=== PATIENT | male | born 1945 | race Caucasian/White ===

== ENCOUNTER 2019-04-13 11:44 | Inpatient (IN) | payer MEDICARE, MEDICAID, OTHER ==
[~2019-04-13] VITALS: Ht 182.9 cm; Wt 70.8 kg
--- NOTE | 2019-04-13 11:54 | NUR ---
PT LD FROM [facility] FOR S/I, PLANS TO TAKE SLEEPING PILLS; PT AAOX2-3, PT TO BED 15, PT ON MONITOR, VSS, SUICIDE PRECAUTION INITIATED. PENDING MD RITCHIE
[2019-04-13 12:24] LABS: BASOPHILS % (AUTO) 0.7 % (0.0-2.0); EOSINOPHILS % (AUTO) 2.6 % (0.0-6.0); HEMATOCRIT 37 % (39-51); HEMOGLOBIN 13.1 g/dL (13.5-17.5); LYMPHOCYTES % (AUTO) 31.5 % (20.0-44.0); MEAN CORPUSCULAR HGB CONC 35 g/dl (31.0-36.0); MEAN CORPUSCULAR VOLUME 94 fL (80-96); MONOCYTES # (AUTO) 0.4 /CMM (0.1-1.30); MONOCYTES % (AUTO) 6.8 % (2.0-12.0); NEUTROPHILS # (AUTO) 3.8 /CMM (1.8-8.9); NEUTROPHILS % (AUTO) 58.4 % (43.0-81.0); PLATELET COUNT (AUTO) 181 /CMM (150-450); RED BLOOD CELL COUNT(AUTO) 3.97 MIL/uL (4.5-6.0); WHITE BLOOD COUNT (AUTO) 6.5 K/uL (4.3-11.0)
[2019-04-13 12:29] LABS: CALCIUM, SERUM 8.6 mg/dL (8.5-10.1); CARBON DIOXIDE 26 mmol/L (21-32); CHLORIDE 105 mmol/L (98-107); CREATININE 0.8 mg/dL (0.6-1.3); GLUCOSE 94 mg/dL (74-106); SODIUM SERUM 139 mmol/L (136-145); UREA NITROGEN, BLOOD 22 mg/dL (7-18)
[2019-04-13 12:41] LABS: APPEARANCE,URINE Clear (CLEAR); BILIRUBIN,URINE Negative (NEGATIVE); BLOOD, URINE Negative Ery/uL (NEGATIVE); COLOR,URINE Yellow (YELLOW); KETONES,URINE Negative (NEGATIVE); LEUKOCYTE ESTERASE ,URINE Negative (NEGATIVE); NITRITE, URINE Negative (NEGATIVE); PH,URINE 6.5 (5.0-8.0); PROTEIN,URINE Negative (NEGATIVE); UGLUCOSE Negative (NEGATIVE)
[2019-04-13 12:42] LABS: ALANINE AMINOTRANSFERASE 19 U/L (12-78); ALBUMIN 3.5 g/dL (3.4-5.0); ALCOHOL, BLOOD < 3 mg/dL (0-0); ALKALINE PHOSPHATASE 55 U/L (46-116); ASPARTATE AMINOTRANSFERASE 14 U/L (15-37); BILIRUBIN,DIRECT 0.1 mg/dL (0.0-0.2); BILIRUBIN,TOTAL 0.9 mg/dL (0.2-1.0); TOTAL PROTEIN, SERUM 6.7 g/dL (6.4-8.2)
[2019-04-13 12:43] LABS: ACETAMINOPHEN 0 ug/ml (10-30); SALICYLATE < 0.3 mg/dL (2.8-20.0)
[2019-04-13] MEDS ORDERED: CARV3.122 PO (12:43)
[2019-04-13] MEDS ORDERED: PANT40TA4 PO (12:43)
[2019-04-13] MEDS ORDERED: METF-440 PO (12:43)
[2019-04-13] MEDS ORDERED: DONE10TA44 PO (12:43)
[2019-04-13] MEDS ORDERED: TEMA30CA PO (12:43)
[2019-04-13] MEDS ORDERED: BENA10TA11 PO (12:43)
[2019-04-13] MEDS ORDERED: RISP0.253 PO (12:44)
[2019-04-13 12:45] LABS: BACTERIA,URINE None seen /HPF (None Seen); RBC,URINE NONE SEEN /HPF (0-2); SQUAMOUS EPITHELIAL CELL,UR Few /HPF (None Seen); WBC,URINE NONE SEEN /HPF (0-3)
--- NOTE | 2019-04-13 12:46 | NUR ---
URINE COLLECTED AND SENT TO LAB
--- NOTE | 2019-04-13 14:28 | NUR ---
CALLED NURSING SUP REQUESTED GPS BED FOR THIS PATIENT
--- NOTE | 2019-04-13 14:57 | NUR ---
REPORT GIVEN TO DEMETRIUS PHAN FOR CORY; [facility]
[2019-04-13] MEDS ORDERED: MAGNESIUM HYDROXIDE 30 ML UDC PO PRN (15:00)
[2019-04-13] MEDS ORDERED: LORAZEPAM 0.5 MG TABLET PO PRN (15:00)
[2019-04-13] MEDS ORDERED: ACETAMINOPHEN 325 MG TABLET PO PRN (15:00)
[2019-04-13] MEDS ORDERED: MAG HYDROX/AL HYDROX/SIMETH 30 ML UDC PO PRN (15:00)
--- NOTE | 2019-04-13 15:05 | NUR ---
Group note: Pt was encouraged to join group therapy session on 04/13/19 at 2:00pm. Pt. unable to attend group.
[2019-04-13 15:34] VITALS: BP 150/64
--- NOTE | 2019-04-13 15:51 | NUR ---
ADMITTED A 74 YEARS OLD MALE FOR 5150 FOR DTS. PER. HOLD PT. OVERDOSED ON 6 SLEEPING PILLS A SUICIDAL ATTEMPT. PT. DOES NOT WANT TO LIVE, FEELS LIFE IS NOT WORTH, FEELS HOPELESS. PT. ARRIVED IN THE UNIT VIA A WHEELCHAIR AND WHEELED BY ER STAFF. PT. IS UNDER THE SERVICE OF DR. HDZ AND RENETTA RENO (SENIOR BUSINESS MANAGER). UPON FACE TO FACE ASSESSMENT, PT. DENIED BEING SUICIDAL AND HOMICIDAL. HE STATED HE IS STILL DEPRESSED AND FEELING HOPELESS. V/S TAKEN, CONTRABAND TAKEN AND SKIN ASSESSMENT RENDERED. CALLED SONIA HAMMOND AT [phone] AND LEFT A MESSAGE. PT. WAS ORIENTED IN THE UNIT AND PTS. RIGHT HANDBOOK PROVIDED, WILL CONTINUE TO MONITOR FOR SAFETY.
--- NOTE | 2019-04-13 15:55 | NUR ---
RN-CO:DR Ayoub gave admitting orders. Patient's rights booklet was given to the patient and encouraged him to ask questions.
[2019-04-13 16:00] VITALS: BP 150/64
--- NOTE | 2019-04-13 16:13 | NUR ---
RENETTA RENO IN THE UNIT AND MADE AWARE OF THE ADMISSION AND TOLD TO RECONCILE MEDS.
[2019-04-13 16:50] VITALS: BP 120/65
[2019-04-13] MEDS: CARVEDILOL 3.125 MG TABLET PO SCH (16:51)
[2019-04-13] MEDS: METFORMIN 500 MG TABLET PO SCH (16:51)
[2019-04-13] MEDS ORDERED: TEMAZEPAM 15 MG CAPSULE PO PRN (17:00)
--- NOTE | 2019-04-13 18:44 | NUR ---
RN-CO: ABLE TO NOTIFIED SONIA HAMMOND.
[2019-04-13] MEDS: SERTRALINE HCL 25 MG TABLET PO SCH (19:48)
--- NOTE | 2019-04-13 19:51 | NUR ---
RN NOTES: KEPT ON CLOSE WATCH DUE MEDICATION VERIFIED AND GIVEN.
[2019-04-13 20:00] VITALS: BP 109/51
[2019-04-13 20:04] VITALS: BP 109/43
[2019-04-13] MEDS ORDERED: risperiDONE 1 MG TABLET PO SCH ×2 (22:00)
[2019-04-13] MEDS: DONEPEZIL 5 MG TABLET PO SCH (22:19)
[2019-04-14 07:21] LABS: CHOLESTEROL 246 mg/dL (<200); HDL CHOLESTEROL 33 mg/dL (40-60); LDL 168 mg/dL (0-99); TRIGLYCERIDES 207 mg/dL (30-150)
[2019-04-14 07:25] LABS: ALANINE AMINOTRANSFERASE 23 U/L (12-78); ALBUMIN 3.5 g/dL (3.4-5.0); ALKALINE PHOSPHATASE 52 U/L (46-116); ASPARTATE AMINOTRANSFERASE 13 U/L (15-37); CALCIUM, SERUM 8.9 mg/dL (8.5-10.1); CARBON DIOXIDE 27 mmol/L (21-32); CHLORIDE 104 mmol/L (98-107); CREATININE 0.8 mg/dL (0.6-1.3); GLUCOSE 81 mg/dL (74-106); POTASSIUM 3.7 mmol/L (3.5-5.1); SODIUM SERUM 139 mmol/L (136-145); TOTAL PROTEIN, SERUM 6.7 g/dL (6.4-8.2); UREA NITROGEN, BLOOD 21 mg/dL (7-18)
[2019-04-14 08:00] VITALS: BP 113/64
[2019-04-14] MEDS: BENAZEPRIL HCL 10 MG TABLET PO SCH (09:40)
[2019-04-14] MEDS: PANTOPRAZOLE 40 MG TABLET.DR PO SCH (09:40)
[2019-04-14] MEDS: CARVEDILOL 3.125 MG TABLET PO SCH ×2 (09:41→17:48)
[2019-04-14] MEDS: METFORMIN 500 MG TABLET PO SCH ×2 (09:41→17:48)
[2019-04-14 16:00] VITALS: BP 107/57
[2019-04-14] MEDS: SERTRALINE HCL 25 MG TABLET PO SCH (17:48)
[2019-04-14 19:39] VITALS: BP 124/64
[2019-04-14] MEDS: DONEPEZIL 5 MG TABLET PO SCH (21:32)
[2019-04-14] MEDS: risperiDONE 1 MG TABLET PO SCH (21:33)
[2019-04-15 08:00] VITALS: BP 108/50
[2019-04-15] MEDS: CARVEDILOL 3.125 MG TABLET PO SCH ×2 (09:35→17:29)
[2019-04-15] MEDS: METFORMIN 500 MG TABLET PO SCH ×2 (09:35→17:28)
[2019-04-15] MEDS: PANTOPRAZOLE 40 MG TABLET.DR PO SCH (09:36)
[2019-04-15] MEDS: BENAZEPRIL HCL 10 MG TABLET PO SCH (09:36)
[2019-04-15 16:00] VITALS: BP 140/77
--- NOTE | 2019-04-15 19:08 | NUR ---
Patient endorsed to EMILIE Morley.
[2019-04-15] MEDS: risperiDONE 1 MG TABLET PO SCH (20:58)
[2019-04-15] MEDS: DONEPEZIL 5 MG TABLET PO SCH (20:58)
[2019-04-15 21:07] VITALS: BP 103/58
[2019-04-16 08:00] VITALS: BP 100/56
[2019-04-16] MEDS: BENAZEPRIL HCL 10 MG TABLET PO SCH (09:00)
[2019-04-16] MEDS: CARVEDILOL 3.125 MG TABLET PO SCH ×2 (09:00→16:21)
[2019-04-16] MEDS: METFORMIN 500 MG TABLET PO SCH ×2 (09:13→16:20)
[2019-04-16] MEDS: PANTOPRAZOLE 40 MG TABLET.DR PO SCH (09:13)
--- NOTE | 2019-04-16 09:52 | NUR ---
ANA contacted Michelle [phone] who stated she is not pts and is not able to assist with information. Michelle stated that she is pts friend but has not relationship with him and does not want to be informed of anything pertaining to pt.
--- NOTE | 2019-04-16 10:37 | NUR ---
SW contacted therapist Vero Tavares [phone] [facility] [address] [facility] [address], [place] [address] who stated pt is no longer a client in their clinic.
--- NOTE | 2019-04-16 11:28 | NUR ---
INITIAL DISCHARGE NOTE: Patient came from [facility] [address] [facility] [address]. There is no phone number to contact and SW has been unable to locate facility information online. SW will explore SNF placement. ANA will help form a safe and proper discharge in collaboration with .
[2019-04-16 16:00] VITALS: BP 113/62
--- NOTE | 2019-04-16 16:11 | NUR ---
GROUP NOTE: SW prompted pt to participate in group therapy on 04/17/19 at 2:00pm but pt refused to attend stating, "get out and let me sleep."
[2019-04-16] MEDS ORDERED: SERTRALINE HCL 25 MG TABLET PO SCH (17:00)
[2019-04-16 20:24] VITALS: BP 107/51
[2019-04-16] MEDS: DONEPEZIL 5 MG TABLET PO SCH (21:09)
[2019-04-16] MEDS: risperiDONE 1 MG TABLET PO SCH (21:10)
[2019-04-16] MEDS: TEMAZEPAM 7.5 MG CAPSULE PO PRN (21:12)
--- NOTE | 2019-04-16 22:37 | NUR ---
SLEEPING Patient in bed, sleeping arouses easily. Compliant with medication, safety checks continues.
--- NOTE | 2019-04-17 06:12 | NUR ---
END OF SHIFT NOTES Patient slept well with PRN Restoril, approximately 9 hours of sleep. Maintained safety.
[2019-04-17 08:00] VITALS: BP 105/52
[2019-04-17] MEDS: PANTOPRAZOLE 40 MG TABLET.DR PO SCH (08:55)
[2019-04-17] MEDS: METFORMIN 500 MG TABLET PO SCH ×2 (08:55→16:35)
[2019-04-17] MEDS: CARVEDILOL 3.125 MG TABLET PO SCH ×2 (08:56→16:35)
[2019-04-17] MEDS: BENAZEPRIL HCL 10 MG TABLET PO SCH (08:58)
--- NOTE | 2019-04-17 12:06 | NUR ---
SW attempted to provide substance abuse intervention to pt but pt was agitated and asked SW to leave. Pt refused to cooperate with intervention.
--- NOTE | 2019-04-17 15:08 | NUR ---
Group Note: Pt was encouraged to attend group therapy on 04/17/19 at 2pm discussing the topic of their goals in areas of both their hospitalization and their personal life. Pt stated that he did not want to attend the group and would rather stay in his room. Pt is isolating and presented as irritable.
[2019-04-17 16:00] VITALS: BP 102/79
[2019-04-17] MEDS: SERTRALINE HCL 25 MG TABLET PO SCH (16:35)
[2019-04-17 20:26] VITALS: BP 110/55
[2019-04-17] MEDS: risperiDONE 1 MG TABLET PO SCH (21:16)
[2019-04-17] MEDS: DONEPEZIL 5 MG TABLET PO SCH (21:16)
[2019-04-17 22:30] VITALS: BP 109/65
[2019-04-18 08:00] VITALS: BP 103/57
[2019-04-18] MEDS: PANTOPRAZOLE 40 MG TABLET.DR PO SCH (08:03)
[2019-04-18] MEDS: METFORMIN 500 MG TABLET PO SCH ×2 (08:11→16:33)
[2019-04-18] MEDS: CARVEDILOL 3.125 MG TABLET PO SCH (08:12)
[2019-04-18] MEDS: BENAZEPRIL HCL 10 MG TABLET PO SCH (08:13)
--- NOTE | 2019-04-18 09:11 | NUR ---
ANA faxed SNF referral to Faby, clinical pharmacy coordinator at [facility] Address: [address] [facility], [place] [address] for review.
--- NOTE | 2019-04-18 13:46 | NUR ---
ANA received a call from pts therapist Zena [phone] at [facility] [address] [address] stating that there was a miscommunication and that pt is currently receiving services at their clinic. Zena stated that pt had met with her on Tuesday04/11/19 and that he was cooperative and compliant with his treatment. Zena stated that she is surprised about pts current hospitalization as she stated he had not vocalized feelings of hopelessness or depression. Zena requested SW fax clinical information once pt is ready for discharge to [phone].
--- NOTE | 2019-04-18 14:50 | NUR ---
SW received a call from pts therapist Zena [phone] at [facility] [address] [facility] [address] [place] [address] Ayoub office number for additional information and also requested clinical information.
--- NOTE | 2019-04-18 14:53 | NUR ---
ANA faxed clinical information to therapist Zena [phone] at [facility] [address] [facility] [address] [place] [address] .
--- NOTE | 2019-04-18 14:56 | NUR ---
GROUP NOTE: SW prompted pt to participate in group therapy on 04/18/19 at 1400, pt refused to attend stating he wanted to stay in his room.
--- NOTE | 2019-04-18 15:13 | NUR ---
SW received a call from gordon Camacho at at [facility] Address: [address] [facility], [place] [address] stating pt was not accepted to the facility due to his recent suicide attempt.
[2019-04-18 16:00] VITALS: BP 112/72
[2019-04-18] MEDS: SERTRALINE HCL 25 MG TABLET PO SCH (16:33)
[2019-04-18 20:00] VITALS: BP 108/62
[2019-04-18] MEDS: DONEPEZIL 5 MG TABLET PO SCH (21:21)
[2019-04-18] MEDS: SIMVASTATIN 10 MG TABLET PO SCH (21:21)
[2019-04-18] MEDS: risperiDONE 1 MG TABLET PO SCH (21:22)
[2019-04-19 08:00] VITALS: BP 106/63
--- NOTE | 2019-04-19 08:18 | NUR ---
ANA faxed SNF referral to Kylah public policy coordinator at [facility] Address: [address] [place] [address] for review.
[2019-04-19] MEDS: BENAZEPRIL HCL 10 MG TABLET PO SCH (08:24)
[2019-04-19] MEDS: PANTOPRAZOLE 40 MG TABLET.DR PO SCH (08:24)
[2019-04-19] MEDS: METFORMIN 500 MG TABLET PO SCH ×2 (08:24→16:17)
--- NOTE | 2019-04-19 10:44 | NUR ---
SW received a phone call from Kylah, regional education coordinator at [facility] Address: [address] [place] [address] stating pt has been accepted to the facility.
[2019-04-19 16:00] VITALS: BP 136/71
--- NOTE | 2019-04-19 16:10 | NUR ---
GROUP NOTE: SW prompted pt to participate in group therapy on 04/18/19 at 2pm, pt refused to attend stating he wanted to stay in his room.
[2019-04-19] MEDS: SERTRALINE HCL 25 MG TABLET PO SCH (16:18)
[2019-04-19 20:00] VITALS: BP 109/51
[2019-04-19] MEDS: DONEPEZIL 5 MG TABLET PO SCH (21:09)
[2019-04-19] MEDS: risperiDONE 1 MG TABLET PO SCH (21:09)
[2019-04-19] MEDS: SIMVASTATIN 10 MG TABLET PO SCH (21:09)
[2019-04-20 08:00] VITALS: BP 142/77
[2019-04-20] MEDS: METFORMIN 500 MG TABLET PO SCH ×2 (08:08→16:35)
[2019-04-20] MEDS: PANTOPRAZOLE 40 MG TABLET.DR PO SCH (08:08)
[2019-04-20] MEDS ORDERED: ATORVASTATIN 10 MG TABLET PO SCH ×2 (11:06→21:00)
--- NOTE | 2019-04-20 11:23 | NUR ---
LIPITOR NOT GIVEN AT THIS TIME, ORDERED IS FOR BEDTIME.
--- NOTE | 2019-04-20 12:17 | NUR ---
GROUP NOTE: Pt was present in group therapy on 04/20/19 at 11:30 but was unable to participate as pt is cognitively impaired and confused.
[2019-04-20 16:00] VITALS: BP 135/66
[2019-04-20] MEDS: SERTRALINE HCL 25 MG TABLET PO SCH (16:34)
--- NOTE | 2019-04-20 19:25 | NUR ---
GPS RN NOTE, RECEIVED PATIENT AWAKE AND IN BED, NO S/S OR COMPLAINTS OF PAIN AT THIS TIME. PATIENT IS DISPLAYING NO S/S OF APPARENT DISTRESS AT THIS TIME. PATIENT BREATHING IS UNLABORED WITH EQUAL RISE AND FALL OF THE CHEST. PATIENT IS ALERT AND ORIENTED X 3 ON ROOM AIR WITH A SPO2 OF 95 %. PATIENT IS MED COMPLAINT, DISORGANIZED, CONFUSED AT TIMES, COOPERATIVE, AND NEEDS REORIENTATION. PATIENT DENIES SUICIDE AND HOMICIDAL IDEATIONS AT THIS TIME. PATIENT ASSISTED WITH TURNING AND REPOSITIONING Q2HR AND PRN FOR COMFORT AND CIRCULATION. PATIENT HAS NO NEEDS AT THIS TIME. PATIENT EDUCATED ON THE USE OF THE CALL DURAN. PATIENT BED SIDE RAILS ARE UP X 2 FOR SAFETY, BED IS LOCKED, AND LOW WILL CONTINUE TO MONITOR AND MAINTAIN SAFETY.
[2019-04-20 20:00] VITALS: BP 99/64
[2019-04-20] MEDS: risperiDONE 1 MG TABLET PO SCH (21:29)
[2019-04-20] MEDS: DONEPEZIL 5 MG TABLET PO SCH (21:29)
[2019-04-20] MEDS: ATORVASTATIN 10 MG TABLET PO SCH (21:30)
[2019-04-21] MEDS: PANTOPRAZOLE 40 MG TABLET.DR PO SCH (07:50)
[2019-04-21 07:55] VITALS: BP 110/60
[2019-04-21] MEDS: METFORMIN 500 MG TABLET PO SCH ×2 (08:13→16:11)
[2019-04-21 16:00] VITALS: BP 105/72
[2019-04-21] MEDS: SERTRALINE HCL 25 MG TABLET PO SCH (16:12)
--- NOTE | 2019-04-21 19:30 | NUR ---
GPS RN NOTE, RECEIVED PATIENT AWAKE AND IN BED, NO S/S OR COMPLAINTS OF PAIN AT THIS TIME. PATIENT IS DISPLAYING NO S/S OF APPARENT DISTRESS AT THIS TIME. PATIENT BREATHING IS UNLABORED WITH EQUAL RISE AND FALL OF THE CHEST. PATIENT IS ALERT AND ORIENTED X 3 ON ROOM AIR WITH A SPO2 OF 98 %. PATIENT IS MED COMPLAINT, DISORGANIZED, CONFUSED AT TIMES, COOPERATIVE, AND NEEDS REORIENTATION. PATIENT DENIES SUICIDE AND HOMICIDAL IDEATIONS AT THIS TIME. PATIENT ASSISTED WITH TURNING AND REPOSITIONING Q2HR AND PRN FOR COMFORT AND CIRCULATION. PATIENT HAS NO NEEDS AT THIS TIME. PATIENT EDUCATED ON THE USE OF THE CALL DURAN. PATIENT BED SIDE RAILS ARE UP X 2 FOR SAFETY, BED IS LOCKED, AND LOW WILL CONTINUE TO MONITOR AND MAINTAIN SAFETY.
[2019-04-21 20:00] VITALS: BP 97/59
[2019-04-21] MEDS: ATORVASTATIN 10 MG TABLET PO SCH (21:39)
[2019-04-21] MEDS: DONEPEZIL 5 MG TABLET PO SCH (21:39)
[2019-04-21] MEDS: risperiDONE 1 MG TABLET PO SCH (21:39)
[2019-04-21] MEDS: TEMAZEPAM 7.5 MG CAPSULE PO PRN (23:50)
--- NOTE | 2019-04-21 23:50 | NUR ---
GPS RN NOTE, PATIENT HAS A COMPLAINT OF NOT BEING ABLE TO SLEEP AND IS REQUESTING RESTORIL AT THIS TIME. PATIENT VITAL SIGNS ARE STABLE. GAVE RESTORIL 7.5MG PO HS PRN ORDERED. WILL REASSESS FOR INSOMNIA AND I WILL CONTINUE TO MONITOR THIS PATIENT.
[2019-04-22] MEDS: PANTOPRAZOLE 40 MG TABLET.DR PO SCH (07:30)
[2019-04-22 08:00] VITALS: BP 124/86
[2019-04-22] MEDS: METFORMIN 500 MG TABLET PO SCH ×2 (09:24→17:26)
[2019-04-22 16:00] VITALS: BP 128/72
[2019-04-22] MEDS: SERTRALINE HCL 25 MG TABLET PO SCH (17:26)
--- NOTE | 2019-04-22 19:28 | NUR ---
RESTING IN BED, COMFORTABLE, AWAKE, ALERT, ORIENTED X3, DEPRESSED, DENIES SI/HI AT THIS TIME, CALM, COOPERATIVE, UNKEMPT, DISHEVELED, NO APPARENT DISTRESS NOTED. WILL CONTINUE TO MONITOR Q 15 MINS. TO MAINTAIN SAFETY.
[2019-04-22 19:47] VITALS: BP 122/53
[2019-04-22 19:49] VITALS: BP 122/53
[2019-04-22] MEDS: ATORVASTATIN 10 MG TABLET PO SCH (21:22)
[2019-04-22] MEDS: risperiDONE 1 MG TABLET PO SCH (21:22)
[2019-04-22] MEDS: DONEPEZIL 5 MG TABLET PO SCH (21:22)
[2019-04-22] MEDS: TEMAZEPAM 7.5 MG CAPSULE PO PRN (21:37)
[2019-04-23 08:00] VITALS: BP 101/59
[2019-04-23] MEDS: PANTOPRAZOLE 40 MG TABLET.DR PO SCH (08:10)
[2019-04-23] MEDS: METFORMIN 500 MG TABLET PO SCH ×2 (08:10→16:15)
--- NOTE | 2019-04-23 08:33 | NUR ---
RN OPENING NOTES RECEIVED PATIENT RESTING IN BED. NO APPARENT S/S OF PAIN, DISTRESS OR SOB AT THIS TIME. PATIENT ALERT AND ORIENTED X3. NO COMPLAINTS OF SI/HI AT THIS TIME. PATIENT CALM, COOPERATIVE, UNKEPT. WILL CONTINUE TO MONITOR Q15 MIN FOR SAFETY.
[2019-04-23 16:00] VITALS: BP 139/72
[2019-04-23] MEDS: SERTRALINE HCL 25 MG TABLET PO SCH (16:15)
[2019-04-23 19:29] VITALS: BP 105/49
[2019-04-23] MEDS: ATORVASTATIN 10 MG TABLET PO SCH (21:00)
[2019-04-23] MEDS: risperiDONE 1 MG TABLET PO SCH (21:00)
[2019-04-23] MEDS: DONEPEZIL 5 MG TABLET PO SCH (21:00)
[2019-04-23 21:30] VITALS: BP 108/57
[2019-04-23] MEDS: TEMAZEPAM 7.5 MG CAPSULE PO PRN (22:00)
[2019-04-24 08:00] VITALS: BP 112/69
[2019-04-24] MEDS: METFORMIN 500 MG TABLET PO SCH ×2 (08:03→16:38)
[2019-04-24] MEDS: PANTOPRAZOLE 40 MG TABLET.DR PO SCH (08:03)
--- NOTE | 2019-04-24 08:57 | NUR ---
ANA faxed SNF referral to [facility] Address: [address] [facility], [place] [address] for review.
--- NOTE | 2019-04-24 10:36 | NUR ---
SW received a call from gordon Nichole director at [facility] Address: [address] [place] [address] stating pt has been accepted to the facility.
--- NOTE | 2019-04-24 15:17 | NUR ---
GROUP NOTE: SW prompted pt to participate in group therapy on 04/24/19 at 1400, pt refused to attend stating he wanted to stay in his room.
[2019-04-24 16:07] VITALS: BP 149/59
[2019-04-24] MEDS: SERTRALINE HCL 25 MG TABLET PO SCH (16:38)
[2019-04-24 20:18] VITALS: BP 101/45
[2019-04-24] MEDS: risperiDONE 1 MG TABLET PO SCH (21:01)
[2019-04-24] MEDS: ATORVASTATIN 10 MG TABLET PO SCH (21:01)
[2019-04-24] MEDS: DONEPEZIL 5 MG TABLET PO SCH (21:01)
[2019-04-25 08:00] VITALS: BP 156/65
[2019-04-25] MEDS: METFORMIN 500 MG TABLET PO SCH ×2 (08:29→16:21)
[2019-04-25] MEDS: PANTOPRAZOLE 40 MG TABLET.DR PO SCH (08:29)
[2019-04-25 16:00] VITALS: BP 129/56
[2019-04-25] MEDS: SERTRALINE HCL 25 MG TABLET PO SCH (16:21)
[2019-04-25 20:15] VITALS: BP 110/50
[2019-04-25] MEDS: risperiDONE 1 MG TABLET PO SCH (21:02)
[2019-04-25] MEDS: ATORVASTATIN 10 MG TABLET PO SCH (21:02)
[2019-04-25] MEDS: DONEPEZIL 5 MG TABLET PO SCH (21:02)
[2019-04-26 08:00] VITALS: BP 113/62
[2019-04-26] MEDS: METFORMIN 500 MG TABLET PO SCH ×2 (08:53→16:34)
[2019-04-26] MEDS: PANTOPRAZOLE 40 MG TABLET.DR PO SCH (08:53)
[2019-04-26 16:00] VITALS: BP 146/95
[2019-04-26] MEDS ORDERED: SERTRALINE HCL 25 MG TABLET PO SCH (17:00)
[2019-04-26 20:00] VITALS: BP 115/56
[2019-04-26] MEDS: ATORVASTATIN 10 MG TABLET PO SCH (21:07)
[2019-04-26] MEDS: DONEPEZIL 5 MG TABLET PO SCH (21:07)
[2019-04-26] MEDS: risperiDONE 1 MG TABLET PO SCH (21:09)
[2019-04-27 08:00] VITALS: BP 110/59
[2019-04-27] MEDS: METFORMIN 500 MG TABLET PO SCH (08:50)
[2019-04-27] MEDS: PANTOPRAZOLE 40 MG TABLET.DR PO SCH (08:50)
--- NOTE | 2019-04-27 09:13 | NUR ---
DISCHARGE NOTE: Pt discharging at 1230pm to [facility] Address: [address] [place] [address] via [facility]. Pts has no family to notify. Pts mood is irritable and anxious with congruent affect. Pt denied visual/auditory hallucinations and denied suicidal/homicidal ideation. Pt will follow up with Psychiatrist: Dr. Khloe Ayoub [address] [facility] [address], [place] [address] [phone] and address prescription drug misuse. Pt will also be under the care of Family Sociologist: Dr. Holden Morales Address: [address] [facility] [address], [place] [address] Phone: [phone]. The multidisciplinary exit care form was done, printed, signed, and given to the patient.
--- NOTE | 2019-04-27 14:19 | NUR ---
GPS/RN Report given to [facility] /RAUL PHAN. AMBULANCE RESCHEDULED FOR 1500 PER REQUEST BY FACILITY.
--- NOTE | 2019-04-27 15:15 | NUR ---
GPS/RN PT DISCHARGED TO [facility] LEFT VIA AMBULANCE. EXIT CARE PRESCRIPTIONS PROVIDED AND UNDERSTOOD NO SI OR HI AT THE TIME OF DISCHARG REPORTED. PT IS AMBULATORY, ANXIOUS TO LEAVE AND REFUSED TO SIGN D/C PAPERWORK. PROPERTY RETURNED , ID BAND REMOVED, VSS, NO DISTRESS ON DISCHARGE.
--- NOTE | 2019-05-07 09:20 | NUR ---
ANA faxed discharge clinicals to therapist Vero Tavares [phone] at [facility] [address] [place] [address]
--- NOTE | 2019-05-14 11:34 | NUR ---
15 DAY SUBSTANCE ABUSE FOLLOW-UP: excluded due to discharge to SNF.
== END 2019-04-27 15:15 | DRG 885 ==
LOC: ER 11:46 → GPS 14:42
PROVIDERS: ADMIT Psychiatry & Neurology Psychosomatic Medicine; ATTEND Nurse Practitioner Acute Care
DX: F25.0 Schizoaffective disorder, bipolar type (principal); F01.50 Vascular dementia, unspecified severity, without behavioral disturbance, psychotic disturbance, mood disturbance, and anxiety; E11.40 Type 2 diabetes mellitus with diabetic neuropathy, unspecified; K21.9 Gastro-esophageal reflux disease without esophagitis; I10 Essential (primary) hypertension; E78.5 Hyperlipidemia, unspecified; D63.8 Anemia in other chronic diseases classified elsewhere; Z95.1 Presence of aortocoronary bypass graft; Z79.84 Long term (current) use of oral hypoglycemic drugs; Z91.5 Personal history of self-harm
CPT/HCPCS: 36415; 80048-TC; 80053-TC; 80061-TC; 80076-TC; 80305; 81000-TC; 85025-TC; 87081-TC; G0480

== ENCOUNTER 2020-10-11 12:04 | Inpatient (IN) | payer MEDICARE, OTHER ==
[~2020-10-11] VITALS: Ht 182.9 cm; Wt 64.4 kg
[~2020-10-11 12:04] MED LIST: BENA10TA74 PO; CARV3.122 PO; DONE10TA44 PO; METF-440 PO; PANT40TA49 PO; RISP0.253 PO; TEMA30CA PO
--- NOTE | 2020-10-11 12:26 | NUR ---
MOVE SHEET SUBMITTED AND CALLED FOR TELE BED.
--- NOTE | 2020-10-11 12:28 | NUR ---
BRANDAN FROM [facility], TO ER BED 6. AAOX3. NOT IN RESP DISTRESS, BREATHING EVEN AND UNLABORED. SENT BY PRIMARY MD FOR COUGH AND WEAKNESS FOR THE PAST WEEK. PT IS AFEBRILE. PLACED ON MONITOR. MD WAS AT THE BEDSIDE FOR EVAL. ORDERS RECEIVED NOTED AND CARRIED OUT. IV STARTED ON LAC 20G. BLOOD DRAWN AND GIVEN TO FISHING GUIDE AT BEDSIDE.
[2020-10-11] MEDS ORDERED: ASPI-1169 PO (12:29)
[2020-10-11] MEDS ORDERED: ACET325T53 PO (12:29)
[2020-10-11] MEDS ORDERED: ZINC1CAP3 PO (12:29)
[2020-10-11] MEDS ORDERED: CHOL500062 PO (12:29)
[2020-10-11] MEDS ORDERED: DOCU-141 PO (12:29)
[2020-10-11] MEDS ORDERED: ASCO500C17 PO (12:29)
[2020-10-11 12:36] LABS: BASOPHILS # (AUTO) 0.1 /CMM (0.0-0.2); EOSINOPHILS % (AUTO) 5.1 % (0.0-6.0); HEMATOCRIT 37 % (39-51); HEMOGLOBIN 12.8 g/dL (13.5-17.5); LYMPHOCYTES # (AUTO) 2.2 /CMM (0.8-4.8); LYMPHOCYTES % (AUTO) 36.6 % (20.0-44.0); MEAN CORPUSCULAR HGB CONC 35 g/dl (31.0-36.0); MEAN CORPUSCULAR VOLUME 93 fL (80-96); MONOCYTES # (AUTO) 0.5 /CMM (0.1-1.30); MONOCYTES % (AUTO) 8.3 % (2.0-12.0); NEUTROPHILS # (AUTO) 2.9 /CMM (1.8-8.9); PLATELET COUNT (AUTO) 166 /CMM (150-450); RED BLOOD CELL COUNT(AUTO) 3.97 MIL/uL (4.5-6.0); WHITE BLOOD COUNT (AUTO) 5.9 K/uL (4.3-11.0)
--- NOTE | 2020-10-11 12:36 | NUR ---
COVID AND FLU SWAB DONE AND SENT TO LAB
[2020-10-11 12:44] LABS: CALCIUM, SERUM 8.6 mg/dL (8.5-10.1); CARBON DIOXIDE 27 mmol/L (21-32); CHLORIDE 101 mmol/L (98-107); CREATININE 0.9 mg/dL (0.6-1.3); GLUCOSE 100 mg/dL (74-106); POTASSIUM 4.1 mmol/L (3.5-5.1); SODIUM SERUM 138 mmol/L (136-145); UREA NITROGEN, BLOOD 20 mg/dL (7-18)
--- NOTE | 2020-10-11 12:51 | NUR ---
CALLED DR. HORNER
[2020-10-11 12:57] LABS: ALANINE AMINOTRANSFERASE 19 U/L (12-78); ALBUMIN 3.5 g/dL (3.4-5.0); ALKALINE PHOSPHATASE 44 U/L (46-116); ASPARTATE AMINOTRANSFERASE 13 U/L (15-37); B-TYPE NATRIURETIC PEPTIDE 191 PG/ML (0-125); BILIRUBIN,TOTAL 0.5 mg/dL (0.2-1.0); TOTAL PROTEIN, SERUM 6.5 g/dL (6.4-8.2)
--- NOTE | 2020-10-11 13:05 | NUR ---
COVID ANTIGEN SWAB DONE AND SENT TO LAB
--- NOTE | 2020-10-11 13:19 | NUR ---
CALLED DR. HORNER
--- NOTE | 2020-10-11 13:29 | NUR ---
ordered for urinalysis, pt is unable to provide urine at this time and refused cath. md aware. will collect whem n pt have the urge. verbal order received to give 1l ns iv x 1. noted and carried out
[2020-10-11] MEDS ORDERED: IV NS 0.9% 500 ML BAG IV ONE (13:30)
--- NOTE | 2020-10-11 14:14 | NUR ---
GOT BED 201
--- NOTE | 2020-10-11 14:26 | NUR ---
followed up with pt regarding urine. still unable to provide urine. md aware
--- NOTE | 2020-10-11 14:44 | NUR ---
called x 2 with no answer report. will bring pt up w/ bedside report.
--- NOTE | 2020-10-11 14:55 | NUR ---
PT TRANSPORTED TO UNIT ON [facility] WITH EMT AND RN AT BEDSIDE W/ ACLS PROTOCOL. NAD NOTED DURING TRANSPORT. BEDSIDE REPORT GIVEN TO EMILIE GILL FOR CORY.
--- NOTE | 2020-10-11 15:00 | NUR ---
PUBLICATION SPECIALIST NOTES ADMITTED PATIENT FROM EMERGENCY ROOM REPORT GIVEN BY SUAD PHAN, PATIENT ALERT ORIENTED X 3. NO ACUTE DISTRESS NOTED. BREATHING UNLABORED. NO SOB NOTED. IV ACCESS PATENT AND INTACT, NO REDNESS , NO SWELLING NOTED. ORIENTED TO THE ROOM. SHOW HOW TO USE CALL LIGHT , PLACED WITHIN REACH. NEEDS ATTENDED. SAFETY MEASURES IN PLACE. CALL LIGHT WITHIN REACH , WILL CONTINUE TO MONITOR ACCORDINGLY.
[2020-10-11 16:00] VITALS: BP 155/69
[2020-10-11 16:03] LABS: BILIRUBIN,DIRECT 0.1 mg/dL (0.0-0.2)
[2020-10-11] MEDS: IV D5/ 0.9% NACL 1,000 ML IV PRN (16:47)
[2020-10-11] MEDS ORDERED: ACETAMINOPHEN 325 MG TABLET PO PRN ×2 (17:00→20:00)
[2020-10-11] MEDS ORDERED: ONDANSETRON HCL/PF 4 MG/2 ML VIAL IV PRN (17:00)
--- NOTE | 2020-10-11 17:00 | NUR ---
HOSPICE CHAPLAIN NOTES LACTIC ACID RESULTED 2.9, RELAYED TO DR SEBLE HORNER, NO NEW ORDER MADE AT THIS TIME
[2020-10-11] MEDS: CEFTRIAXONE 1 G in IV D5W 50 ML IV SCH (17:36)
[2020-10-11] MEDS: ENOXAPARIN SODIUM 40 MG/0.4 ML DISP.SYRIN SQ SCH (17:39)
[2020-10-11] MEDS: ZITHROMAX 500 MG/250 ML D5W IV SCH ×2 (18:12)
--- NOTE | 2020-10-11 18:30 | NUR ---
KNOBBER NOTES FOLLOWED UP WITH DR SEBLE HORNER REGARDING MEDICATION RECONCILIATION NEEDS DONE.
--- NOTE | 2020-10-11 18:45 | NUR ---
ACCESS SERVICES REPRESENTATIVE NOTES COLLECTED URINE, CALLED LABORATORY FOR SEO STRATEGIST
--- NOTE | 2020-10-11 19:00 | NUR ---
MS RN NOTES PATIENT IN BED ALERT ORIENTED X 3. NO ACUTE DISTRESS NOTED. NO SOB NOTED. BREATHING UNLABORED. DENIED ANY PAIN. IV ACCESS PATENT AND INTACT, NO REDNESS, NO SWELLING NOTED. HEAD OF BED ELEVATED. SAFETY MEASURES IN PLACE. CALL LIGHT WITHIN REACH. WILL CONTINUE TO MONITOR ACCORDINGLY.
[2020-10-11 20:00] VITALS: BP 119/49
[2020-10-11] MEDS ORDERED: *INSULIN REGULAR(HUMULIN R)HUM 100 UNIT/ML VIAL SQ PRN (20:00)
[2020-10-11] MEDS ORDERED: DEXTROSE 50%-WATER 50 ML DISP.SYRIN IV PRN (20:00)
[2020-10-11 20:01] LABS: BILIRUBIN,URINE NEGATIVE (NEGATIVE); BLOOD, URINE NEGATIVE Ery/uL (NEGATIVE); COLOR,URINE YELLOW (YELLOW); LEUKOCYTE ESTERASE ,URINE NEGATIVE (NEGATIVE); NITRITE, URINE NEGATIVE (NEGATIVE); PH,URINE 5.5 (5.0-8.0); PROTEIN,URINE NEGATIVE (NEGATIVE); UGLUCOSE NEGATIVE (NEGATIVE); UROBILINOGEN,URINE 0.2 EU/dL (0.2)
--- NOTE | 2020-10-11 20:30 | NUR ---
SENIOR GAME ADVISOR: Received report from talon restrepo at 1905. pt in bed, awake, a/o x3 hard of hearing, uses pen and paper to communicate. iv access patent and flushing well, infusing with d5ns at 100ml/hr. on ra, denies any sob. pt can ambulate with assistance, education provided that he's on bedrest, pt uses own pull ups, urinal also placed within reach. pending pcr. isolation airborne. n95 and face shield utilized, ppe utilized. safety precautions for fall initiated, call light in reach, will continue monitoring pt.
[2020-10-11] MEDS: BLOOD SUGAR DIAGNOSTIC 1 EACH STRIP VI SCH (21:43)
--- NOTE | 2020-10-11 21:44 | NUR ---
ACCU CHECK 114: BLOOD SUGAR CHECK RESULT OBTAINED IS 114. NO INSULIN COVERAGE PER SLIDING SCALE.
--- NOTE | 2020-10-11 22:45 | NUR ---
PRN TYLENOL: PRN TYLENOL ADMINISTERED FOR PT'S REQUEST, C/O HEAD ACHE 01/14
[2020-10-12] VITALS (8 sets, daily range): BP systolic 106–135; BP diastolic 43–63
[2020-10-12 06:13] LABS: BASOPHILS % (AUTO) 0.3 % (0.0-2.0); EOSINOPHILS % (AUTO) 5.5 % (0.0-6.0); HEMATOCRIT 36 % (39-51); HEMOGLOBIN 12.3 g/dL (13.5-17.5); LYMPHOCYTES # (AUTO) 2.4 /CMM (0.8-4.8); LYMPHOCYTES % (AUTO) 45.3 % (20.0-44.0); MEAN CORPUSCULAR HGB CONC 35 g/dl (31.0-36.0); MEAN CORPUSCULAR VOLUME 92 fL (80-96); MONOCYTES # (AUTO) 0.4 /CMM (0.1-1.30); MONOCYTES % (AUTO) 7.5 % (2.0-12.0); NEUTROPHILS # (AUTO) 2.2 /CMM (1.8-8.9); NEUTROPHILS % (AUTO) 41.4 % (43.0-81.0); PLATELET COUNT (AUTO) 149 /CMM (150-450); RED BLOOD CELL COUNT(AUTO) 3.87 MIL/uL (4.5-6.0); WHITE BLOOD COUNT (AUTO) 5.2 K/uL (4.3-11.0)
[2020-10-12] MEDS: BLOOD SUGAR DIAGNOSTIC 1 EACH STRIP VI SCH ×4 (06:19→21:21)
[2020-10-12] MEDS: INSULIN REGULAR, HUMAN 100 UNIT/ML 3 ML VIAL SQ PRN ×3 (06:20→16:46)
[2020-10-12] MEDS: IV D5/ 0.9% NACL 1,000 ML IV PRN (06:24)
[2020-10-12 06:31] LABS: CALCIUM, SERUM 8.2 mg/dL (8.5-10.1); CREATININE 0.7 mg/dL (0.6-1.3); POTASSIUM 3.9 mmol/L (3.5-5.1)
--- NOTE | 2020-10-12 06:48 | NUR ---
END OF SHIFT REPORT: PT REMAINS ON RA, SPO2 RANGING 95-96%. DENIES ANY PAIN OR DISCOMFORT. NO SOB NOTED. IV ACCESS REMAINS PATENT AND FLUSHING WELL, INFUSING WITH D5NS AT 100ML/HR. NO S/S OF IV INFILTRATION NOTED. REMAINS SINUS ANETTE HR 56. REMAINS AFEBRILE. VS REMAINS STABLE, NEEDS ATTENDED. PLAN OF CARE: PENDING COVID PCR RESULT, CONTINUE IV ATB AND HYDRATION, FALL PRECAUTION. SAFETY PRECAUTIONS FOR FALL REMAINS ENGAGED, CALL LIGHT IN REACH, WILL ENDORSE TO DAY RN FOR CONTINUITY OF CARE.
--- NOTE | 2020-10-12 07:42 | NUR ---
LEAVE COORDINATOR OPENING NOTES RECEIVED PT ON BED, AOX3, COEUR D'ALENE, COMMUNICATION VIA PEN AND PAPER. RESPIRATION EVEN AND NON LABORED WITH NO ACUTE RESPIRATORY DISTRESS, ON RA. ABD SOFT AND NON DISTENDED WITH ACTIVE BOWEL SOUNDS, ABLE TO TOLERATE REGULAR DIET, CONTINENT AND USES URINAL PRN. PT DENIES PAIN AND DISCOMFORT. SKIN WARM TO TOUCH AND DRY. BLE OFF LOAD. IV SITE AT LEFT AC #20 PATENT IN FLUSHING RUNNING D5NS @ 100 ML/HR. TELE MONITOR SHOWS SINUS RHYTHM 87. ON CONTACT/DROPLET ISOLATION DUE TO +COVID, PENDING PCR. PPE UTILIZED PER PROTOCOL. BED IN LOW LOCKED POSITION, BED ALARM ON FOR ASSISTANCE ALERT, SRX2 UP FOR SAFETY, CALL LIGHT WITHIN REACH, WILL CONTINUE TO EVALUATE CARE.
[2020-10-12] MEDS: BENAZEPRIL HCL 10 MG TABLET PO SCH (08:17)
[2020-10-12] MEDS: PANTOPRAZOLE 40 MG TABLET.DR PO SCH (08:17)
[2020-10-12] MEDS: ZINC SULFATE 220 MG CAPSULE PO SCH (08:17)
[2020-10-12] MEDS: ASCORBIC ACID 500 MG TABLET PO SCH (08:17)
[2020-10-12] MEDS: METFORMIN 500 MG TABLET PO SCH ×2 (08:17→16:15)
[2020-10-12] MEDS: CHOLECALCIFEROL 1,000 UNIT TABLET (VIT D3) PO SCH (08:17)
[2020-10-12] MEDS: ASPIRIN 81 MG TAB.CHEW PO SCH (08:17)
[2020-10-12] MEDS: DOCUSATE SODIUM 100 MG CAPSULE PO SCH (08:17)
[2020-10-12] MEDS: CARVEDILOL 3.125 MG TABLET PO SCH ×2 (08:18→16:12)
--- NOTE | 2020-10-12 10:13 | NUR ---
ANIMAL KILLER NOTES PT SEEN AND EVALUATED BY DR. HORNER, TO DO LABS TODAY FOR LACTIC ACID. ORDER READ BACK NOTED AND CARRIED OUT.
--- NOTE | 2020-10-12 11:13 | NUR ---
BUTCHER MEAT NOTES PT SEEN AND EVALUATED BY DR. TALAVERA, SUPPORT TECHNICIAN. NO NEW ORDER NOTED. CONT POC TO PATIENT.
--- NOTE | 2020-10-12 13:53 | NUR ---
ASSISTANT LABORATORY DIRECTOR NOTES COVID[address] HORNER NOTIFIED. NURSING COTTON DISPATCHER [place]NA NOTIFIED.
[2020-10-12] MEDS: CEFTRIAXONE 1 G in IV D5W 50 ML IV SCH (16:01)
--- NOTE | 2020-10-12 16:12 | NUR ---
BLACK OXIDE OPERATOR NOTES CARVEDILOL NOT ADMINISTERED DUE TO LOW HE OF 51. PATIENT HAS BEEN ON SINUS BRADYCARDIA 40-50 PER TELE MONITOR SINCE AM. WILL CONT TO MONITOR Addendum: 10/12/20 at 1614 by ZOILA LANG RN LOWEST 39 BPM
[2020-10-12] MEDS: ENOXAPARIN SODIUM 40 MG/0.4 ML DISP.SYRIN SQ SCH (16:16)
[2020-10-12] MEDS: ZITHROMAX 500 MG/250 ML D5W IV SCH ×2 (16:55)
[2020-10-12] MEDS ORDERED: risperiDONE 0.25 MG TABLET PO SCH (18:00)
[2020-10-12] MEDS ORDERED: risperiDONE 1 MG TABLET PO SCH (18:00)
--- NOTE | 2020-10-12 18:50 | NUR ---
MANAGER ENVIRONMENTAL SERVICES NOTES RECEIVED PATIENT FROM MED SURG 2 , REPORT GIVEN BY JOSHUA PHAN, ALERT ORIENTED X 3. NO ACUTE DISTRESS NOTED. NO SOB NOTED. BREATHING UNLABORED. DENIED ANY PAIN. VITAL SIGNS STABLE. IV ACCESS PATENT AND INTACT, NO REDNESS, NO SWELLING NOTED. HEAD OF BED ELEVATED. SAFETY MEASURES IN PLACE. CALL LIGHT WITHIN REACH. WILL CONTINUE TO MONITOR ACCORDINGLY.
--- NOTE | 2020-10-12 18:54 | NUR ---
CONTINUOUS WASHER OPERATORNUTRITION SERVICES AIDE NOTES PT AAOX2-3 WITH EPISODES OF CONFUSION, [place]. TOLERATING RA WITH NO PRESENCE OF ACUTE RESPIRATORY DISTRESS. PT DENIES PAIN AND DISCOMFORT. SKIN WARM TO TOUCH AND DRY, NO NEW SKIN BREAKDOWN, BLE OFF LOAD. TELE MONITOR SHOWS SINUS RHYTHM 85. SAFETY MEASURES PROVIDED. ENDORSED CARE TO 328-2 DUE TO COVID19 NEGATIVE.
--- NOTE | 2020-10-12 19:20 | NUR ---
WATCHSTANDER OPENING NOTES RECEIVED PATIENT IN BED, ALERT AND ORIENTED X 2-3. VERBALLY RESPONSIVE, HARD OF HEARING BUT ABLE TO FOLLOW DIRECTIONS. BREATHING REGULAR AND UNLABORED ON ROOM AIR. LEFT AC G20 IV LINE INTACT AND PATENT, INFUSING WELL WITH NO BLEEDING OR S/S OF INFILTRATION NOTED. ON CARDIAC MONITORING WITH NSR/ EPISODES OF SINUS BRADYCARDIA AT 50-60'S bpm. DENIES PAIN/DISCOMFORT AT THIS TIME. BED LOW AND LOCKED ON SEMI FOWLERS POSITION, CALL LIGHT IN REACH. WILL CONTINUE TO MONITOR.
[2020-10-13] VITALS: BP 102/42
[2020-10-13] MEDS: IV D5/ 0.9% NACL 1,000 ML IV PRN (01:15)
[2020-10-13 04:00] VITALS: BP 122/58
[2020-10-13] MEDS: BLOOD SUGAR DIAGNOSTIC 1 EACH STRIP VI SCH ×2 (06:37→12:04)
[2020-10-13] MEDS: INSULIN REGULAR, HUMAN 100 UNIT/ML 3 ML VIAL SQ PRN (06:37)
--- NOTE | 2020-10-13 06:45 | NUR ---
OIL GAS AND PIPE TESTER CLOSING NOTES PATIENT IN BED, ALERT AND ORIENTED X 2-3. AFEBRILE WITH NO S/S OF DISTRESS OBSERVED. LEFT AC G20 IV LINE PATENT AND INFUSING WELL. MAINTAINED ON CARDIAC MONITORING WITH NSR AT 72bpm. NO S/S OF PAIN/DISCOMFORT AT THIS TIME. BED LOW AND LOCKED ON SEMI FOWLERS POSITION, CALL LIGHT IN REACH. WILL ENDORSE TO MORNING SHIFT FOR CORY.
--- NOTE | 2020-10-13 07:10 | NUR ---
ADMINISTRATIVE ASSISTANT FRONT DESK OPENING NOTES RECEIVED PT AWAKE IN BED AT THIS TIME. PT AOX2. HARD OF HEARING. NO SOB NOTED, NO S/S OF ANY ACUTE DISTRESS NOTED. NO C/O PAIN AT THIS TIME. RESPIRATIONS ARE EVEN AND UNLABORED. IV ACCESS NOTED IN LAC G#20, INTACT, PATENT AND FLUSHING WELL. PT ON EXTERNAL TELE RADIOSONDE SPECIALIST READING SB IN 50S.SAFETY PRECAUTION IN PLACE AND MAINTAINED AT ALL TIMES. BED IN LOWEST LOCKED POSITION, HOB ELEVATED, SIDE RAILS UP X 2, CALL LIGHT AND TABLE WITHIN REACH. WILL CONTINUE TO MONITOR
[2020-10-13 07:42] LABS: BASOPHILS % (AUTO) 0.5 % (0.0-2.0); HEMATOCRIT 35 % (39-51); HEMOGLOBIN 12.1 g/dL (13.5-17.5); LYMPHOCYTES # (AUTO) 2.6 /CMM (0.8-4.8); LYMPHOCYTES % (AUTO) 43.1 % (20.0-44.0); MEAN CORPUSCULAR HGB CONC 34 g/dl (31.0-36.0); MEAN CORPUSCULAR VOLUME 93 fL (80-96); MONOCYTES # (AUTO) 0.4 /CMM (0.1-1.30); MONOCYTES % (AUTO) 6.8 % (2.0-12.0); NEUTROPHILS # (AUTO) 2.7 /CMM (1.8-8.9); NEUTROPHILS % (AUTO) 45.6 % (43.0-81.0); PLATELET COUNT (AUTO) 147 /CMM (150-450); RED BLOOD CELL COUNT(AUTO) 3.81 MIL/uL (4.5-6.0); WHITE BLOOD COUNT (AUTO) 5.9 K/uL (4.3-11.0)
[2020-10-13 07:48] LABS: CALCIUM, SERUM 8.1 mg/dL (8.5-10.1); CREATININE 0.8 mg/dL (0.6-1.3); POTASSIUM 3.8 mmol/L (3.5-5.1)
[2020-10-13 08:00] VITALS: BP 110/49
[2020-10-13] MEDS: DOCUSATE SODIUM 100 MG CAPSULE PO SCH (08:39)
[2020-10-13] MEDS: ASPIRIN 81 MG TAB.CHEW PO SCH (08:40)
[2020-10-13] MEDS: PANTOPRAZOLE 40 MG TABLET.DR PO SCH (08:40)
[2020-10-13] MEDS: ASCORBIC ACID 500 MG TABLET PO SCH (08:40)
[2020-10-13] MEDS: CHOLECALCIFEROL 1,000 UNIT TABLET (VIT D3) PO SCH (08:40)
[2020-10-13] MEDS: METFORMIN 500 MG TABLET PO SCH (08:40)
[2020-10-13] MEDS: ZINC SULFATE 220 MG CAPSULE PO SCH (08:40)
[2020-10-13] MEDS: BENAZEPRIL HCL 10 MG TABLET PO SCH (08:41)
[2020-10-13] MEDS: CARVEDILOL 3.125 MG TABLET PO SCH (08:42)
[2020-10-13] MEDS ORDERED: CEPH-570 PO (09:46)
[2020-10-13 12:00] VITALS: BP 126/61
--- NOTE | 2020-10-13 15:00 | NUR ---
TREE CUTTERLEAD CUSTODIAN NOTES PT DISCHARGE TO [facility] AT THIS TIME. PT IS MEDICALLY STABLE AND CLEARED FOR DISCHARGE. REPORT CALLED IN TO SIMON BORJAS @ [facility]. PT KEPT CLEAN AND DRY. ALL CARE, NEEDS, TREATMENT AND MEDICATIONS ADMINISTERED ANTICIPATED PER ORDER. DISCHARGE INSTRUCTIONS PROVIDED AND PT VERBALIZED UNDERSTANDING. ALL BELONGINGS ACCOUNTED FOR, SIGNED BY PT, RETURN TO PT AND COPY OF BELONGING LIST FILED IN CHART. ID BAND REMOVED. IV ACCESS REMOVED, PRESSURE APPLIED, SECURED WITH GAUZE AND TAPE. NO SIGN OF BLEEDING OR INFILTRATION NOTED. PT LEFT THE UNIT AT THIS TIME IN STABLE CONDITION ACCOMPANIED BY TWO AMBULANCE PERSONNELS. GEORGETTE, CHARGE NURSE AND DR SIRI LIMA.
[2020-10-13] MEDS ORDERED: AZITHROMYCIN 250 MG TABLET PO SCH (17:00)
== END 2020-10-13 14:50 | DRG 872 ==
LOC: ER 12:07 → TELE2 14:42 → TELE 10-12 19:00
PROVIDERS: ADMIT Legal Medicine; ATTEND Legal Medicine
DX: A41.9 Sepsis, unspecified organism (principal); N17.9 Acute kidney failure, unspecified; N39.0 Urinary tract infection, site not specified; E87.2 Acidosis; F32.9 Major depressive disorder, single episode, unspecified; I10 Essential (primary) hypertension; F29 Unspecified psychosis not due to a substance or known physiological condition; E11.9 Type 2 diabetes mellitus without complications; I25.10 Atherosclerotic heart disease of native coronary artery without angina pectoris; Z20.828 Contact with and (suspected) exposure to other viral communicable diseases; Z79.84 Long term (current) use of oral hypoglycemic drugs; Z88.0 Allergy status to penicillin; R53.1 Weakness; Z79.82 Long term (current) use of aspirin; Z95.1 Presence of aortocoronary bypass graft
CPT/HCPCS: 36415; 71045-TC; 80048-TC; 80053-TC; 82248-TC; 82962-TC; 83605-TC; 83880; 84484-TC; 85025-TC; 87040-TC; 87081-TC; 87086-TC; C9803; G0378; J0456; J0696; J1650; J1815; J7042; J7060; U0003